=== PATIENT | male | born 1980 | race Native Hawaiian/Other Pacific Islander ===

== ENCOUNTER 2016-12-24 07:48 | Outpatient (CLI) | payer OTHER ==
[2016-12-24 08:38] LABS: POTASSIUM 4.1 mmol/L (3.6-5.2)
[2016-12-24 11:01] LABS: PLATELET COUNT 217 K/uL (142-355)
== END 2016-12-24 19:22 | disposition home or self-care (01) ==
LOC: LABW 07:48
PROVIDERS: Transplant Surgery
DX: Z94.0 Kidney transplant status (principal); Z79.899 Other long term (current) drug therapy; Z51.81 Encounter for therapeutic drug level monitoring
CPT/HCPCS: 36415; 80053; 80197; 81000; 82150; 83690; 83735; 85027

== ENCOUNTER 2017-03-25 07:59 | Outpatient (CLI) | payer OTHER ==
[2017-03-25 08:26] LABS: PLATELET COUNT 198 K/uL (142-355)
[2017-03-25 08:28] LABS: POTASSIUM 3.8 mmol/L (3.6-5.2); SODIUM 136 mmol/L (136-145)
== END 2017-03-25 19:24 | disposition home or self-care (01) ==
LOC: LABW 07:59
PROVIDERS: Transplant Surgery
DX: Z94.0 Kidney transplant status (principal); Z79.899 Other long term (current) drug therapy; Z51.81 Encounter for therapeutic drug level monitoring
CPT/HCPCS: 36415; 80053; 80197; 81000; 82150; 83690; 83735; 85027

== ENCOUNTER 2017-11-18 09:31 | Outpatient (CLI) | payer OTHER ==
[2017-11-18 10:18] LABS: PLATELET COUNT 238 K/uL (142-355)
[2017-11-18 10:33] LABS: POTASSIUM 3.9 mmol/L (3.6-5.2)
== END 2017-11-18 19:21 | disposition home or self-care (01) ==
LOC: LABW 09:31
PROVIDERS: Transplant Surgery
DX: Z94.0 Kidney transplant status (principal); Z79.899 Other long term (current) drug therapy; Z51.81 Encounter for therapeutic drug level monitoring
CPT/HCPCS: 36415; 80053; 80197; 81000; 82150; 83690; 83735; 85027

== ENCOUNTER 2018-01-03 07:51 | Outpatient (CLI) | payer OTHER ==
[2018-01-03 08:52] LABS: PLATELET COUNT 237 K/uL (142-355)
[2018-01-03 09:03] LABS: POTASSIUM 4.2 mmol/L (3.6-5.2)
== END 2018-01-03 22:12 | disposition home or self-care (01) ==
LOC: LABW 07:51
PROVIDERS: Transplant Surgery
DX: M25.512 Pain in left shoulder (principal); Z86.39 Personal history of other endocrine, nutritional and metabolic disease; Z94.0 Kidney transplant status; Z79.899 Other long term (current) drug therapy; Z51.81 Encounter for therapeutic drug level monitoring
CPT/HCPCS: 36415; 80053; 80061; 80197; 81000; 82150; 83036; 83690; 83735; 85027; 85651; 86140

== ENCOUNTER 2018-05-19 09:36 | Outpatient (CLI) | payer OTHER ==
[2018-05-19 09:52] LABS: PLATELET COUNT 169 K/uL (142-355)
[2018-05-19 10:01] LABS: POTASSIUM 3.8 mmol/L (3.6-5.2)
== END 2018-05-19 19:44 | disposition home or self-care (01) ==
LOC: LABW 09:36
PROVIDERS: Transplant Surgery
DX: Z94.0 Kidney transplant status (principal); Z79.899 Other long term (current) drug therapy
CPT/HCPCS: 36415; 80053; 80197; 81000; 82150; 83690; 83735; 85027

== ENCOUNTER 2018-08-21 09:50 | Outpatient (CLI) | payer OTHER ==
[2018-08-21 10:26] LABS: PLATELET COUNT 204 K/uL (142-355)
[2018-08-21 10:39] LABS: POTASSIUM 4.1 mmol/L (3.6-5.2)
== END 2018-08-21 21:43 | disposition home or self-care (01) ==
LOC: LABW 09:50
PROVIDERS: Transplant Surgery
DX: I10 Essential (primary) hypertension (principal); Z94.0 Kidney transplant status
CPT/HCPCS: 36415; 80053; 80197; 81000; 82150; 83690; 83735; 85027

== ENCOUNTER 2019-07-22 08:27 | Outpatient (CLI) | payer OTHER ==
[2019-07-22 08:59] LABS: POTASSIUM 4.3 mmol/L (3.6-5.2)
[2019-07-22 09:44] LABS: PLATELET COUNT 192 K/uL (142-355)
== END 2019-07-22 20:08 | disposition home or self-care (01) ==
LOC: LABW 08:27
PROVIDERS: Transplant Surgery
DX: Z94.0 Kidney transplant status (principal); Z79.899 Other long term (current) drug therapy
CPT/HCPCS: 36415; 80053; 80197; 81000; 82150; 83690; 83735; 85027

== ENCOUNTER 2020-02-25 09:50 | Outpatient (CLI) | payer OTHER ==
[2020-02-25 10:11] LABS: PLATELET COUNT 177 K/uL (142-355)
[2020-02-25 10:22] LABS: POTASSIUM 4.1 mmol/L (3.6-5.2)
== END 2020-02-25 21:36 | disposition home or self-care (01) ==
LOC: LABW 09:50
PROVIDERS: Transplant Surgery
DX: Z94.0 Kidney transplant status (principal); Z79.899 Other long term (current) drug therapy; E55.9 Vitamin D deficiency, unspecified; E11.9 Type 2 diabetes mellitus without complications
CPT/HCPCS: 36415; 80053; 80061; 80197; 81000; 82150; 82306; 83036; 83690; 83735; 85027

== ENCOUNTER 2020-07-20 07:45 | Outpatient (CLI) | payer OTHER ==
[2020-07-20 08:23] LABS: PLATELET COUNT 205 K/uL (142-355)
[2020-07-20 08:53] LABS: POTASSIUM 3.8 mmol/L (3.6-5.2)
== END 2020-07-20 20:20 | disposition home or self-care (01) ==
LOC: LABW 07:45
PROVIDERS: ATTEND Internal Medicine
DX: Z94.0 Kidney transplant status (principal); Z79.899 Other long term (current) drug therapy; E83.42 Hypomagnesemia
CPT/HCPCS: 36415; 80053; 80197; 81000; 83735; 85027

== ENCOUNTER 2021-07-31 07:58 | Outpatient (CLI) | payer OTHER ==
[2021-07-31 08:25] LABS: PLATELET COUNT 195 K/uL (142-355)
[2021-07-31 08:40] LABS: POTASSIUM 3.9 mmol/L (3.6-5.2)
== END 2021-07-31 19:45 | disposition home or self-care (01) ==
LOC: LABW 07:58
PROVIDERS: ATTEND Internal Medicine Nephrology
DX: Z94.0 Kidney transplant status (principal); Z79.899 Other long term (current) drug therapy; E83.42 Hypomagnesemia; E11.9 Type 2 diabetes mellitus without complications
CPT/HCPCS: 36415; 80053; 80197; 81000; 83036; 83735; 85027

== ENCOUNTER 2021-10-23 08:59 | Outpatient (CLI) | payer OTHER ==
[2021-10-23 09:31] LABS: PLATELET COUNT 170 K/uL (142-355)
== END 2021-10-23 18:53 | disposition home or self-care (01) ==
LOC: LABW 08:59
PROVIDERS: ATTEND Internal Medicine Nephrology
DX: Z94.0 Kidney transplant status (principal); Z79.899 Other long term (current) drug therapy
CPT/HCPCS: 36415; 80053; 80061; 80197; 81000; 82150; 82306; 82570; 83036; 83690; 83735; 83970; 84100; 84155; 85027

== ENCOUNTER 2022-11-28 08:04 | Outpatient (CLI) | payer OTHER ==
[2022-11-28 08:47] LABS: PLATELET COUNT 194 K/uL (142-355)
[2022-11-28 08:55] LABS: POTASSIUM 3.9 mmol/L (3.6-5.2)
== END 2022-11-28 19:16 | disposition home or self-care (01) ==
LOC: LABW 08:04
PROVIDERS: ATTEND Internal Medicine
DX: Z94.0 Kidney transplant status (principal); Z79.899 Other long term (current) drug therapy
CPT/HCPCS: 36415; 80053; 80197; 82570; 83735; 84100; 84156; 85027

== ENCOUNTER 2023-01-17 08:50 | Emergency (ER) | payer OTHER ==
[~2023-01-17] VITALS: Ht 172.7 cm; Wt 72.6 kg
[2023-01-17 11:28] VITALS: BP 172/85; TEMP 98
== END 2023-01-17 11:28 | disposition home or self-care (01) ==
LOC: ED 08:50
DX: M54.9 Dorsalgia, unspecified (principal); M54.2 Cervicalgia; R07.81 Pleurodynia; I10 Essential (primary) hypertension; V89.2XXA Person injured in unspecified motor-vehicle accident, traffic, initial encounter; F17.210 Nicotine dependence, cigarettes, uncomplicated
CPT/HCPCS: 96374; 99284; J1885

== ENCOUNTER 2023-04-19 08:08 | Outpatient (CLI) | payer OTHER ==
[2023-04-19 10:22] LABS: PLATELET COUNT 215 K/uL (142-355)
[2023-04-19 10:32] LABS: POTASSIUM 3.8 mmol/L (3.6-5.2)
== END 2023-04-19 20:24 | disposition home or self-care (01) ==
LOC: LABW 08:08 → US 08:08 → LABW 20:24
PROVIDERS: ATTEND Student in an Organized Health Care Education/Training Program
DX: Z94.0 Kidney transplant status (principal); Z79.899 Other long term (current) drug therapy; E55.9 Vitamin D deficiency, unspecified
CPT/HCPCS: 36415; 80053; 80061; 80197; 82306; 82570; 83036; 83735; 83970; 84100; 84156; 85027